=== PATIENT | female | born 1990 | race Caucasian/White ===

== ENCOUNTER 2016-09-25 10:00 | Observation (INO) ==
[2016-09-25] MEDS ORDERED: ONDANSETRON 4 MG/2 ML VIAL IV PRN (11:09)
[2016-09-25] MEDS ORDERED: ACETAMINOPHEN 325 MG TABLET PO PRN (11:09)
[2016-09-25] MEDS ORDERED: MAGNESIUM HYDROXIDE SUSP 30 ML UDCUP PO PRN (11:09)
[2016-09-25] MEDS ORDERED: BISACODYL 10 MG SUPP RECTAL PRN (11:09)
[2016-09-25 12:54] LABS: Basophils % 0.2 % (0.0-0.8); Eosinophils # 0.1 10*3/uL (0.0-0.87); Eosinophils % 0.4 % (0.00-10.9); Hematocrit 36.6 VOL% (35.7-47.0); Hemoglobin 12.5 GM/DL (12.0-16.0); Immature Granulocytes % 0.4 %; Immature Granulocytes Absolute 0.05 #; Lymphocytes # 2.1 10*3/uL (1.4-4.0); Lymphocytes % 18.4 % (21.3-54.2); Mean Corpuscular HGB Conc 34.2 GM/DL (32-36); Mean Corpuscular Hemoglobin 30 PG (27-34); Mean Corpuscular Volume 86.5 FL (87-102); Mean Platelet Volume 11.8 FL (9.6-12.0); Monocytes # 0.5 10*3/uL (0.11-0.8); Neutrophils # 8.9 10*3/uL (1.4-7.4); Neutrophils % 76.6 % (38.7-73.9); Platelet Count 229 T/CUMM (130-400); Red Blood Count 4.23 MC/CUMM (3.8-5.5); Red Cell Distribution Width 13.4 % (9.3-17.3); White Blood Count 11.6 T/CUMM (4-12)
[2016-09-25 13:28] LABS: Alanine Aminotransferase 23 U/L (13-56); Alkaline Phosphatase 66 U/L (45-117); Aspartate Amino Transferase 9 U/L (0-37); Bilirubin,Total < 0.39 MG/DL (0.2-1.0); Blood Urea Nitrogen 3 MG/DL (7-18); Calcium 8.6 MG/DL (8.5-10.1); Glucose 83 MG/DL (74-106); Osmolality,Calculated 274.4 MOS/KG (273-304); Potassium 3.9 MMOL/L (3.5-5.1); Sodium 140 MMOL/L (136-145); Total Protein 6.1 G/DL (6.4-8.3); Uric Acid 2.9 MG/DL (2.6-6.0)
--- NOTE | 2016-09-25 14:00 | Ultrasound Report ---
Exam: US OB >= 14 weeks fetus Date: 09/25/2016 11:14 AM Indication: Preeclampsia Comparison: 08/14/2016 Findings: Transverse presentation with anterior placenta. BPD: 22 weeks 6 days Head circumference: 22 weeks 4 days Abdominal circumference: 22 weeks 3 days Femur length: 22 weeks 5 days Amniotic fluid index: Largest pocket 59 mm Estimated weight: 517.95 g +/- 77.69 g or 1 lb. 2 oz. Cervical length: 4.2 cm heart rate: 146 bpm structures: Spine and four-chamber heart view stomach kidneys and bladder cord insertion are unremarkable. The cisterna magna is 4 mm. The cerebellum is 22 mm. Lateral ventricle is 6 mm. Male fetus Maternal ovaries not visualized. Impression: 1. 22 week 5 day intrauterine with estimated date of delivery of January 24, 2017. No obvious abnormalities present. Ultrasound images were stored and captured PROCEDURE INTERPRETED AT [facility] DEPARTMENT OF RADIOLOGY Final Report Signed by: Dr. Gato Trevino
[2016-09-25] MEDS: FAMOTIDINE 20 MG TABLET PO SCH (21:10)
[2016-09-25] MEDS: DOCUSATE SODIUM 100 MG CAPSULE PO SCH (21:10)
--- NOTE | 2016-09-26 07:24 | OB/GYN Progress Note ---
Assessment and Plan (1) Preeclampsia Status: Acute Assessment and plan: IUP at 22 + weeks. labs , BPs adn 24 hour urine wnl. pt feeling better. ok to discharge home [employer] - PN: Subj Interval history: The pt is feeling much better . She is tolerating PO and her headache is better. Her BPs have been normal Exam [employer]ING [employer]IM[employer] - Constitutional Vitals: Vital Signs Temp Pulse Resp BP Pulse Ox 09/26/16 04:00 98.0 F 72 18 101/53 99 09/26/16 02:00 18 09/25/16 23:45 98.9 F 99 H 18 127/66 99 09/25/16 19:56 97.7 F 91 H 20 121/69 99 09/25/16 15:54 97.4 F L 108 H 20 122/59 96 09/25/16 12:00 98.0 F 114 H 20 132/92 98 General appearance: normal weight, no acute distress - Respiratory Respiratory exam: Absent: accessory muscle use - Cardiovascular Cardiovascular exam: Present: regular rate and rhythm - GI/Abdominal GI/Abdominal exam: Absent: guarding, tenderness, rebound - Extremities Exam Extremities exam: Absent: calf tenderness Results - Labs CBC & BMP: 09/25/16 12:26 09/25/16 12:26
[2016-09-26] MEDS: FAMOTIDINE 20 MG TABLET PO SCH (09:02)
[2016-09-26] MEDS: DOCUSATE SODIUM 100 MG CAPSULE PO SCH (09:02)
[2016-09-26 12:40] LABS: Collection Time,Urine 24 HOURS; Total Volume,Urine 1175 ML (400-2000)
[2016-09-26 12:49] LABS: Total Protein 24 Hr Ur Result 235 MG/24HR (0-149.1)
[2016-09-26 12:54] LABS: Creatinine 24 Hr Urine Result 0.01 G/24HR (0.60-1.80); Creatinine Clearance Urine 1.77 ML/MIN (70-115)
[2016-09-26 15:49] VITALS: BP 131/86
== END 2016-09-26 15:55 | disposition home or self-care (01) ==
LOC: N.OB
PROVIDERS: ADMIT Obstetrics & Gynecology; ATTEND Obstetrics & Gynecology

== ENCOUNTER 2017-01-23 20:59 | Inpatient (IN) ==
[2017-01-24] MEDS: LACTATED RINGERS 1,000 ML IV SCH ×4 (00:30→20:24)
[2017-01-24 00:51] LABS: Basophils % 0.2 % (0.0-0.8); Eosinophils # 0.1 10*3/uL (0.0-0.87); Eosinophils % 0.6 % (0.00-10.9); Hematocrit 32.6 VOL% (35.7-47.0); Hemoglobin 11.4 GM/DL (12.0-16.0); Immature Granulocytes % 0.7 %; Immature Granulocytes Absolute 0.09 #; Lymphocytes # 2.7 10*3/uL (1.4-4.0); Mean Corpuscular Hemoglobin 29 PG (27-34); Mean Corpuscular Volume 82.5 FL (87-102); Mean Platelet Volume 12.2 FL (9.6-12.0); Monocytes # 0.7 10*3/uL (0.11-0.8); Monocytes % 5.6 % (1.7-12.7); Neutrophils # 8.8 10*3/uL (1.4-7.4); Neutrophils % 70.9 % (38.7-73.9); Platelet Count 210 T/CUMM (130-400); Red Blood Count 3.95 MC/CUMM (3.8-5.5); Red Cell Distribution Width 13.5 % (9.3-17.3); White Blood Count 12.4 T/CUMM (4-12)
[2017-01-24] MEDS: ONDANSETRON 4 MG/2 ML VIAL IV PRN ×2 (13:15→22:20)
[2017-01-24] MEDS: BUTORPHANOL 2 MG/ML VIAL IV PRN ×2 (14:43→22:23)
[2017-01-25] MEDS ORDERED: PROMETHAZINE 25 MG/1 ML VIAL IM ONE (04:01)
[2017-01-25] MEDS: BUTORPHANOL 2 MG/ML VIAL IV PRN ×2 (04:22→15:31)
[2017-01-25] MEDS: LACTATED RINGERS 1,000 ML IV SCH ×2 (09:49→16:03)
[2017-01-25] MEDS: ONDANSETRON 4 MG/2 ML VIAL IV PRN (15:36)
[2017-01-25] MEDS ORDERED: ZALEPLON 5 MG CAPSULE PO PRN ×2 (16:26→16:28)
[2017-01-26] MEDS: OXYTOCIN/LR 20 UNIT/1,000 ML BAG IV SCH ×2 (00:15→16:08)
[2017-01-26] MEDS: BUTORPHANOL 2 MG/ML VIAL IV PRN ×2 (04:42→07:57)
[2017-01-26] MEDS: ONDANSETRON 4 MG/2 ML VIAL IV PRN ×2 (04:42→21:24)
[2017-01-26] MEDS: LACTATED RINGERS 1,000 ML IV SCH ×3 (04:50→12:35)
[2017-01-26] MEDS ORDERED: PROMETHAZINE 25 MG/1 ML VIAL IM PRN (07:36)
[2017-01-26 08:18] LABS: Basophils % 0.3 % (0.0-0.8); Eosinophils # 0.1 10*3/uL (0.0-0.87); Eosinophils % 0.6 % (0.00-10.9); Hemoglobin 13.1 GM/DL (12.0-16.0); Immature Granulocytes % 0.5 %; Immature Granulocytes Absolute 0.07 #; Lymphocytes # 2.4 10*3/uL (1.4-4.0); Lymphocytes % 15.7 % (21.3-54.2); Mean Corpuscular HGB Conc 34.5 GM/DL (32-36); Mean Corpuscular Hemoglobin 29 PG (27-34); Mean Corpuscular Volume 83.2 FL (87-102); Mean Platelet Volume 11.7 FL (9.6-12.0); Monocytes # 0.8 10*3/uL (0.11-0.8); Monocytes % 5.1 % (1.7-12.7); Neutrophils % 77.8 % (38.7-73.9); Platelet Count 227 T/CUMM (130-400); Red Blood Count 4.57 MC/CUMM (3.8-5.5); Red Cell Distribution Width 13.4 % (9.3-17.3); White Blood Count 15.3 T/CUMM (4-12)
[2017-01-26 08:43] LABS: Albumin 2.5 G/DL (3.4-5.0); Bilirubin,Total 0.6 MG/DL (0.2-1.0); Osmolality,Calculated 275.3 MOS/KG (273-304); Potassium 3.4 MMOL/L (3.5-5.1); Total Protein 5.8 G/DL (6.4-8.3)
[2017-01-26 09:04] LABS: INR 0.9; Partial Thromboplastin Time 31.5 SECS (0-40)
[2017-01-26] MEDS ORDERED: ePHEDrine 50 MG/ML AMP IV PRN (09:28)
[2017-01-26] MEDS ORDERED: hydrOXYzine HCL 25 MG/1 ML VIAL IM PRN (09:28)
[2017-01-26] MEDS ORDERED: diphenhydrAMINE 50 MG/1 ML VIAL IV PRN ×2 (09:28)
[2017-01-26] MEDS ORDERED: fentaNYL 2 MCG/ROPIV 0.2% EPID 150 ML EPIDURAL SCH (09:28)
[2017-01-26] MEDS ORDERED: FAMOTIDINE 20 MG/2 ML VIAL IV ONE (09:30)
[2017-01-26] MEDS ORDERED: CITRIC ACID/SODIUM CITRATE 30 ML UDCUP PO ONE (09:30)
[2017-01-26] MEDS ORDERED: fentaNYL 2 MCG/ROPIV 0.2% EPID 150 ML EPIDURAL ONE (09:43)
[2017-01-26 10:34] LABS: Apearance,Urine Slightly Hazy (Clear); Bilirubin,Urine Negative (Negative); Blood, Urine Negative (Negative); Glucose,Urine (UA) Negative (Negative); Hyaline Casts,Urine 1 /LPF (0-3); Ketones,Urine 80 mg/dL (Negative); Mucus,Urine Many /LPF (Occasional); Nitrite,Urine Negative (Negative); Protein,Urine 30 MG/DL; RBC,Urine <1 /HPF (0-4); Squamous Epithelial Cell,Urine Occasional /HPF (0-10); Urine Color Yellow (Yellow); Urine Specific Gravity 1.015 (1.001-1.035); WBC,Urine 1 /HPF (0-6)
[2017-01-26] MEDS ORDERED: SODIUM CHLORIDE 0.9% 0 ML IV ONE (12:12)
[2017-01-26] MEDS ORDERED: ALUMINUM/MAGNES/SIMETH MAX STR 30 ML UDCUP PO PRN (12:52)
[2017-01-26] MEDS ORDERED: LIDOCAINE 1% 50 ML VIAL ONE (13:43)
[2017-01-26] MEDS ORDERED: miSOPROStol 200 MCG TABLET ONE (13:44)
[2017-01-26] MEDS ORDERED: CARBOPROST TROMETHAMINE 250 MCG/ML AMP IM ONE (13:44)
[2017-01-26] MEDS ORDERED: METHYLERGONOVINE 0.2 MG/1 ML AMP ONE (13:44)
[2017-01-26] MEDS ORDERED: BENZOCAINE 20%/MENTHOL 0.5% SPRAY 56 GM CAN TOP PRN (15:06)
[2017-01-26] MEDS ORDERED: MEASLES/MUMPS/RUBELLA VACCINE 0.5 ML VIAL SUBCUT ONE (15:06)
[2017-01-26] MEDS ORDERED: OXYTOCIN/LR 20 UNIT/1,000 ML BAG IV ONE (15:06)
[2017-01-26] MEDS ORDERED: LANOLIN 50% CREAM 0.3 OZ TUBE TOP PRN (15:06)
[2017-01-26] MEDS ORDERED: BISACODYL 10 MG SUPP RECTAL PRN (15:06)
[2017-01-26] MEDS ORDERED: HYDROCORTISONE 2.5% RECTAL CREAM 30 GM TUBE TOP PRN (15:06)
[2017-01-26] MEDS ORDERED: ACETAMINOPHEN 325 MG TABLET PO PRN (15:06)
[2017-01-26] MEDS ORDERED: WITCH HAZEL PADS 100/JAR TOP PRN (15:06)
[2017-01-26] MEDS ORDERED: oxyCODONE/ACETAMINOPHEN 5-325 MG TABLET PO PRN (15:06)
[2017-01-26] MEDS ORDERED: ONDANSETRON 4 MG/2 ML VIAL IV PRN (15:06)
[2017-01-26] MEDS ORDERED: RHO(D) IMMUNE GLOBULIN 300 MCG SYRINGE IM ONE (15:06)
[2017-01-26] MEDS ORDERED: DIPH/TET/ACEL PERT BOOSTER VACCINE 0.5 ML VIAL IM ONE (15:06)
[2017-01-26] MEDS ORDERED: RANITIDINE 150 MG PO PRN (17:40)
[2017-01-26] MEDS ORDERED: ONDANSETRON 4 MG PO PRN (17:40)
[2017-01-26] MEDS: DOCUSATE SODIUM 100 MG CAPSULE PO SCH (20:24)
[2017-01-26] MEDS ORDERED: CLONAZEPAM 0.25 MG PO SCH (21:00)
[2017-01-27] MEDS: ONDANSETRON 4 MG/2 ML VIAL IV PRN (03:40)
[2017-01-27] MEDS: oxyCODONE/ACETAMINOPHEN 5-325 MG TABLET PO PRN ×2 (03:56→21:04)
[2017-01-27] MEDS ORDERED: ONDANSETRON 4 MG TABLET PO PRN (05:21)
[2017-01-27 05:56] LABS: Basophils % 0.3 % (0.0-0.8); Eosinophils # 0.2 10*3/uL (0.0-0.87); Eosinophils % 1.3 % (0.00-10.9); Hematocrit 28.9 VOL% (35.7-47.0); Hemoglobin 9.8 GM/DL (12.0-16.0); Immature Granulocytes % 0.5 %; Immature Granulocytes Absolute 0.07 #; Lymphocytes # 3.1 10*3/uL (1.4-4.0); Mean Corpuscular HGB Conc 33.9 GM/DL (32-36); Mean Corpuscular Hemoglobin 28 PG (27-34); Mean Platelet Volume 11.9 FL (9.6-12.0); Monocytes # 0.9 10*3/uL (0.11-0.8); Monocytes % 6.6 % (1.7-12.7); Neutrophils # 9.8 10*3/uL (1.4-7.4); Neutrophils % 69.3 % (38.7-73.9); Platelet Count 194 T/CUMM (130-400); Red Blood Count 3.48 MC/CUMM (3.8-5.5); Red Cell Distribution Width 13.6 % (9.3-17.3); White Blood Count 14.2 T/CUMM (4-12)
[2017-01-27] MEDS: DOCUSATE SODIUM 100 MG CAPSULE PO SCH ×2 (10:17→21:04)
[2017-01-27] MEDS: IBUPROFEN 800 MG TABLET PO PRN ×2 (12:09→21:04)
[2017-01-28] MEDS: DOCUSATE SODIUM 100 MG CAPSULE PO SCH (08:56)
[2017-02-04 10:50] VITALS: BP 120/73
== END 2017-01-28 14:45 | disposition home or self-care (01) | DRG 775 ==
LOC: N.LDOUT 20:59 → N.LD 21:00 → N.OB 01-26 17:51
PROVIDERS: ADMIT Specialist; ATTEND Specialist